=== PATIENT | male | born 1950 | race Caucasian/White ===

== ENCOUNTER → 2016-12-19 | Outpatient (CLI) | payer OTHER ==
[2016-12-19 09:39] LABS: BASOPHILS # (AUTO) 0.03 10*3/UL; BASOPHILS % (AUTO) 0.4 % (0-1); EOSINOPHILS % (AUTO) 0.6 % (0-8); HEMATOCRIT 45.7 % (42.0-52.0); HEMOGLOBIN 16.2 g/dL (14.0-18.0); IMM GRAN % (AUTO) 0.3 % (0-5); IMM GRAN# (AUTO) 0.02 10*3/UL; LYMPHOCYTES # (AUTO) 2.03 10*3/uL; LYMPHOCYTES % (AUTO) 29.5 % (10-50); MEAN CORPUSCULAR HEMOGLOBIN 32.9 PG (27-31); MEAN CORPUSCULAR HGB CONC 35.4 g/dL (33-37); MEAN PLATELET VOLUME 8.6 FL (7.4-12.2); MONOCYTES # (AUTO) 0.69 10*3/UL (0.3-0.8); NEUTROPHILS # (AUTO) 4.08 10*3/UL; NEUTROPHILS % (AUTO) 59.2 % (50-80); RDW COEFFICIENT OF VARIATION 12.4 % (11.5-14.5); RED BLOOD COUNT 4.93 10^6/uL (4.70-6.10); WHITE BLOOD COUNT 6.89 10^3/uL (4.8-10.8)
[2016-12-19 09:41] LABS: PLATELET MORPHOLOGY COMMENT NORMAL MORPHOLOGY (NORM)
[2016-12-19 09:43] LABS: BILIRUBIN,URINE NEGATIVE (NEG); CLARITY,URINE CLEAR (CLEAR); GLUCOSE, URINE (UA) NEGATIVE (NEG); LEUKOCYTE ESTERASE ,URINE NEGATIVE (NEG); NITRATE,URINE NEGATIVE (NEG); OCCULT BLOOD,URINE MODERATE (NEG); PH,URINE 5.5 (5.0-8.5); PROTEIN,URINE NEGATIVE (NEG); UROBILINOGEN,URINE 0.2 mg/dL (0.2)
[2016-12-19 09:44] LABS: URINE SAMPLE TYPE CLEAN CATCH URINE
[2016-12-19 09:45] LABS: BACTERIA,URINE RARE; RBC,URINE 15-20 /hpf; WBC,URINE 0-1
[2016-12-19 09:55] LABS: ASPARTATE AMINO TRANSFERASE 33 IU/L (21-57); BILIRUBIN,TOTAL 0.5 mg/dL (0.3-1.2); BLOOD UREA NITROGEN 25 mg/dL (7-22); CALCIUM 9.7 mg/dL (8.7-10.7); CHLORIDE 102 meq/L (98-112); EST GLOMERULAR FILTRATION > 60 (>60 ml/min/1.73m(2)); GLUCOSE 104 mg/dL (78-110); POTASSIUM 4.1 meq/L (3.8-5.2); SODIUM 139 meq/L (135-145); TOTAL PROTEIN 7.1 g/dL (6.1-8.0)
--- NOTE | 2016-12-19 13:11 | DI ---
ABDOMINAL AORTIC ULTRASOUND, 12/19/2016 9:29 AM Clinical History: Screening for aortic aneurysm. Previous Exam: None at this facility. Scans are performed in multiple projections through the length of the aorta and iliac arteries with t he high resolution linear array probe. Color Doppler ultrasound was also performed. The aorta is visualized from the upper abdominal region to the bifurcation and into both common iliac arteries. The caliber is normal throughout without evidence of an aneurysm. Minimal plaque disease i s present. In the upper abdomen, the left lobe of the liver was visualized in appearance to be quite echogenic w ith decreased through transmission and this would be consistent with fatty infiltration. Readin. Normal abdominal aorta. There is no evidence of an aneurysm. 2. The left lobe of the liver is echogenic with decreased through transmission consistent with fatty infiltration.
[2016-12-20 13:13] LABS: HCV AB SCREEN Negative (Negative)
== END ==
LOC: US 09:18
PROVIDERS: ATTEND Internal Medicine
DX: I10 Essential (primary) hypertension (principal); E78.5 Hyperlipidemia, unspecified; I67.9 Cerebrovascular disease, unspecified; K76.0 Fatty (change of) liver, not elsewhere classified; F17.220 Nicotine dependence, chewing tobacco, uncomplicated; Z13.6 Encounter for screening for cardiovascular disorders
CPT/HCPCS: 36415; 76775; 80053; 81001; 84443; 85025; 86803

== ENCOUNTER → 2016-12-22 | Outpatient (CLI) | payer OTHER ==
[2016-12-23 14:01] LABS: VITAMIN B12 (SERUM) 584 ng/L (180 - 914)
== END ==
LOC: LAB 08:38
PROVIDERS: ATTEND Internal Medicine
DX: D75.89 Other specified diseases of blood and blood-forming organs (principal)
CPT/HCPCS: 36415; 82607; 82746

== ENCOUNTER → 2017-01-30 | Outpatient (CLI) | payer OTHER ==
[2017-01-30 08:56] LABS: BLOOD UREA NITROGEN 18 mg/dL (7-22); CREATININE 0.8 mg/dL (0.70-1.50); EST GLOMERULAR FILTRATION > 60 (>60 ml/min/1.73m(2))
--- NOTE | 2017-01-30 10:02 | DI ---
CT ABDOMEN SCAN WITHOUT AND WITH IV CONTRAST, 01/30/2017 8:42 AM : Clinical History: Hematuria. Previous Exam: 01/10/2007. Scans are performed from the lower lung bases through the liver and kidneys without and with IV contr ast. Sagittal and coronal images are generated. 95 ml of Isovue 300 was injected IV. 40 mL was inject ed immediately after the noncontrast scans. 45 mL was injected 15 minutes after the first dose and th e postcontrast scans were obtained one minute later. The lung bases are clear. The liver is normal. The gallbladder is grossly normal. There is no abnorma lity of the spleen, pancreas, and adrenal glands. Both kidneys are normal in size, shape, position an d contour. There is no hydronephrosis or hydroureter. No right renal or ureteral calculi are present. There is a large nonobstructing left renal calculus in a mid zone calyx and this measures approximat rio 9 x 10 x 11 mm. There is no left ureteral calculus. There is prostatic enlargement. The bladder i s otherwise normal. There are no abnormal retrocrural or periaortic nodes. There is no ascites. READIN. There is a nonobstructing calculus in a left mid zone calyx measuring 9 x 10 x 11 mm. There is no left ureteral calculus. The right kidney and ureter are normal. The bladder is normal and there is p rostatic enlargement. CT PELVIS SCAN WITHOUT AND WITH IV CONTRAST, 01/30/2017 8:42 AM: Clinical History: See above. Previous Exam: None at this facility. Scans are performed from just superior to the umbilicus to the symphysis pubis without and with IV co ntrast. This is the same bolus of IV contrast used for the CT scans of the abdomen. Scans through the lower abdomen and pelvis show no masses or abnormal fluid collections. There is no adenopathy. The patient is status post appendectomy. The small bowel, terminal ileum, and ileocecal v alve are intact. The colon is also normal. There are no hernias. READING: Normal CT scan of the pelvis.
== END ==
LOC: LAB 08:28
PROVIDERS: ATTEND Urology
DX: R31.9 Hematuria, unspecified (principal); N20.0 Calculus of kidney
CPT/HCPCS: 74178; 82565; 84520

== ENCOUNTER → 2017-07-04 | Outpatient (CLI) | payer OTHER ==
[2017-07-04 10:42] LABS: BLOOD UREA NITROGEN 24 mg/dL (7-22); CALCIUM 9.3 mg/dL (8.7-10.7); CHOL/HDL RATIO 3.18 RATIO (0-4.0); EST GLOMERULAR FILTRATION > 60 (>60 ml/min/1.73m(2)); HDL CHOLESTEROL 48 mg/dL (40-150); SERUM ALBUMIN 4.6 g/dL (3.5-4.8); SERUM CHOLESTEROL 153 mg/dL (120-200)
[2017-07-04 10:43] LABS: HEMATOCRIT 47.2 % (42.0-52.0); HEMOGLOBIN 16.6 g/dL (14.0-18.0); MEAN CORPUSCULAR HEMOGLOBIN 33.1 PG (27-31); MEAN CORPUSCULAR HGB CONC 35.2 g/dL (33-37); MEAN PLATELET VOLUME 9.8 FL (7.4-12.2); RED BLOOD COUNT 5.02 10^6/uL (4.70-6.10)
[2017-07-04 10:52] LABS: BILIRUBIN,URINE NEGATIVE (NEG); CLARITY,URINE CLEAR (CLEAR); COLOR,URINE YELLOW; GLUCOSE, URINE (UA) NEGATIVE (NEG); NITRATE,URINE NEGATIVE (NEG); OCCULT BLOOD,URINE NEGATIVE (NEG); PROTEIN,URINE NEGATIVE (NEG); UROBILINOGEN,URINE 0.2 mg/dL (0.2)
[2017-07-04 11:06] LABS: BAND NEUTROPHILS % 0 % (0-10); BASOPHILS % (MANUAL) 0 % (0-1); EOSINOPHILS % (MANUAL) 1 % (0-8); LYMPHOCYTES % (MANUAL) 51 % (10-50); MONOCYTES % (MANUAL) 6 % (0-12); NEUTROPHILS % (MANUAL) 42 % (50-80); PLATELET MORPHOLOGY COMMENT NORMAL MORPHOLOGY (NORM); RBC MORPHOLOGY COMMENT NORMAL MORPHOLOGY (NORM); WBC MORPHOLOGY COMMENT NORMAL MORPHOLOGY (NORM)
[2017-07-04 14:34] LABS: BACTERIA,URINE FEW; URINE SAMPLE TYPE VOIDED SPECIMEN; WBC,URINE 0-2
== END ==
LOC: MOB LAB 08:28
PROVIDERS: ATTEND Internal Medicine
DX: D75.89 Other specified diseases of blood and blood-forming organs (principal); R31.29 Other microscopic hematuria; E78.5 Hyperlipidemia, unspecified; I67.9 Cerebrovascular disease, unspecified; I10 Essential (primary) hypertension; Z72.0 Tobacco use
CPT/HCPCS: 36415; 80053; 80061; 81001; 85007